=== PATIENT | female | born 1975 | race Caucasian/White ===

== ENCOUNTER 2016-09-13 12:28 | Day surgery (SDC) | payer BC ==
[2016-09-11 13:24] VITALS: BMI 40.3
[2016-09-11 13:28] LABS: BASOPHIL 0.3 % (0-2.0); MCH 27.8 pg (25.7-33.7); MCHC 32.9 g/dl (32.0-36.0); MEAN CELL VOLUME 84.6 fl (80-96); NEUTROPHILS 55.7 % (42.8-82.8); PLATELET COUNT 281 K/MM3 (134-434); RDW 14.7 % (11.6-15.6); WHITE BLOOD COUNT 10.8 K/mm3 (4.0-10.0)
[2016-09-11 13:52] LABS: ALBUMIN 3.6 g/dl (3.4-5.0); ANION GAP 7 (8-16); BILIRUBIN,TOTAL 0.3 mg/dL (0.2-1.0); CALCIUM 8.6 mg/dL (8.5-10.1); CO2 30 mmol/L (21-32); CREATININE 0.5 mg/dL (0.55-1.02); GLUCOSE,RANDOM 98 mg/dL (74-106); SGOT/AST 14 U/L (15-37); SGPT/ALT 17 U/L (12-78); TOT PROT 6.6 g/dl (6.4-8.2)
[2016-09-11 13:53] LABS: ALK PHOS 70 U/L (45-117)
[2016-09-11 14:24] LABS: INR 1.06 (0.82-1.09); PROTHROMBIN TIME (PATIENT) 11.7 SEC (9.98-11.88)
--- NOTE | 2016-09-12 11:41 | EKG ---
Test Reason : Blood Pressure : / mmHG Vent. Rate : 060 BPM Atrial Rate : 060 BPM P-R Int : 146 ms QRS Dur : 100 ms QT Int : 394 ms P-R-T Axes : 007 024 010 degrees QTc Int : 394 ms NORMAL SINUS RHYTHM NORMAL ECG WHEN COMPARED WITH ECG OF 07-NOV-2003 16:34, NO SIGNIFICANT CHANGE WAS FOUND Confirmed by JEREMIE EDMONDS MD ([id number]) on 09/12/2016 11:40:46 AM Referred By: RUEL WOOD Confirmed By:JEREMIE EDMONDS MD
[2016-09-13] MEDS ORDERED: PROPOFOL 20 ML ONE ×2 (14:24→14:44)
[2016-09-13] MEDS ORDERED: MIDAZOLAM HCL 2 MG/2 ML SINGLE DOSE VIAL ONE (14:24)
[2016-09-13] MEDS ORDERED: SUCCINYLCHOLINE CHLORIDE 200 MG/10 ML VIAL ONE (14:24)
--- NOTE | 2016-09-13 14:28 | HP ---
Past Medical History - Primary Care Physician PCP:: Pio Che - Admission Chief Complaint: 40 female admitted for surgical sterilization and excision of vulvar warts. 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: No: Alzheimer's, CVA, Dementia, Migraine, Multiple Sclerosis, Peripheral Neuropathy, Parkinson's, Seizure, Syncope, TIA, Vertigo, Other Cardiovascular: Yes: Other (mitral valve prolapse) Pulmonary: No: Asthma, Bronchitis, Cancer, COPD, O2 Dependent, Pneumonia, Previously Intubated, Pulmonary Embolus, Pulmonary Fibrosis, Sleep Apnea, Other Gastrointestinal: No: Ascites, Cancer, Constipation, Crohn's Disease, Diverticulitis, Diverticulosis, Esophageal Varices, Gastritis, GERD, GI Bleed, Hemorrhoids, Hiatal Hernia, Inflamatory Bowel Disease, Irritable Bowel Disease, Pancreatitis, Peptic Ulcer Disease, Ulcerative Colitis, Other Hepatobiliary: No: Cirrhosis, Cholelithiasis, Cholecystitis, Choledocholithiasis , Hepatitis A, Hepatitis B, Hepatitis C, Other Renal/: No: Renal Failure, Renal Inusuff, BPH, Cancer, Hematuria, Hemodialysis , Neurogenic Bladder, Renal Calculi, UTI, Other Reproductive: No: Ectopic , Endometriosis, Fibroids, PID, Polycystic Ovary Syndrome, Postmenopausal, Other Heme/Onc: No: Anemia, B12 Deficiency, Bleeding Disorder, Cancer, Current Chemotherapy, Current Radiation Therapy, Hemochromatosis, Hypercoaguable State, Myeloproliferative Synd, Sickle Cell Disease, Sickle Cell Trait, Thrombocytopenia, Other Infectious Disease: Yes: Other (HPV) Psych: No: Addictions, Anxiety, Bipolar, Depression, Panic, Psychosis, Schizophrenia, Other Musculoskeletal: No: Bursitis, Chronic low back pain, Hemiparesis, Hemiplegia, Osteoarthritis, Paraplegia, Other Rheumatology: No: Fibromyalgia, Gout, Lupus, Rheumatoid Arthritis, Sarcoidosis, Vasculitis, Other ENT: No: Allergic Rhinitis, Sinusitis, Other Endocrine: No: Demarco's Disease, Mabel's Disease, Diabetes Insipidus, Diabetes Mellitus, Hyperparathyroidism, Hyperthyroidism, Hypothyroidism, Osteopenia, SIADH, Other Dermatology: No: Basal Cell, Cellulitis, Eczema, Melanoma, Psoriasis, Squamous Cell, Other Additional Medical History: Obesity - Past Surgical History Hx Myomectomy: No Hx Transabdominal Cerclage: No Additional Surgical History: LEEP - Smoking History Smoking history: Never smoked Have you smoked in the past 12 months: No - Alcohol/Substance Use Hx Alcohol Use: No History of Substance Use: reports: None - Social History Usual Living Arrangement: Yes: With Child ADL: Independent History of Recent Travel: No Home Medications - Allergies Allergies/Adverse Reactions: Allergies Allergy/AdvReac Type Severity Reaction Status Date / Time No Known Allergies Allergy Verified 09/13/16 13:29 - Home Medications Home Medications: Ambulatory Orders Naproxen [Naprosyn -] 500 mg PO BID 09/11/16 Family Disease History - Family Disease History Family History: Denies Review of Systems - Review of Systems Constitutional: reports: No Symptoms Eyes: reports: No Symptoms HENT: reports: No Symptoms Neck: reports: No Symptoms Cardiovascular: reports: No Symptoms Respiratory: reports: No Symptoms Gastrointestinal: reports: No Symptoms Genitourinary: reports: No Symptoms Breasts: reports: No Symptoms Reported Musculoskeletal: reports: No Symptoms Integumentary: reports: No Symptoms Neurological: reports: No Symptoms Endocrine: reports: No Symptoms Hematology/Lymphatic: reports: No Symptoms Psychiatric: reports: No Symptoms Pain Intensity: 0 Physical Exam-TIRE LAYER Vital Signs: Vital Signs Temperature 97.6 F 09/13/16 13:23 Pulse Rate 50 L 09/13/16 13:23 Respiratory Rate 16 09/13/16 13:23 Blood Pressure 122/70 09/13/16 13:23 O2 Sat by Pulse Oximetry (%) 97 09/13/16 13:23 Constitutional: Yes: Well Nourished, No Distress, Calm Eyes: Yes: WNL, Conjunctiva Clear HENT: Yes: WNL, Atraumatic, Normocephalic Neck: Yes: WNL, Supple, Trachea Midline Cardiovascular: Yes: WNL, Regular Rate and Rhythm Respiratory: Yes: WNL, Regular, CTA Bilaterally Gastrointestinal: Yes: Normal Bowel Sounds, Soft, Abdomen, Obese ...Rectal Exam: Yes: WNL Renal/: Yes: WNL Pelvis: Yes: WNL External Genitalia: Yes: Normal Internal Exam Deferred: No Vaginal Exam: Yes: Normal Cervix: Yes: Normal Uterus: Yes: Normal Adnexa: Normal: Left, Right Breast(s): Yes: WNL Musculoskeletal: Yes: WNL Extremities: Yes: WNL Edema: No Integumentary: Yes: WNL Neurological: Yes: WNL, Alert, Oriented ...Motor Strength: WNL Psychiatric: Yes: WNL, Alert, Oriented Labs: CBC, BMP 09/11/16 12:45 09/11/16 12:45 Assessment/Plan 40 female admitted for surgical sterilization and excision of vulvar warts. The pt prefers laparoscopic bilateral tubal ligation. We had discussed the risks , benefits, alternatives of surgery at length including but not limited to infection, bleeding, scarring, perforation, amenorrhea, infertility, hysterectomy, injury to surrounding/underlying organs or structure, need for additional surgery to repair/treat any complications, etc. The patient verbalized understanding and requested to proceed with surgery. I emphasized that all surgeries have risks and no guarantees can be provided.
[2016-09-13] MEDS ORDERED: ALBUTEROL SO4 6.7 GM HFA INHALER IH ONE (15:13)
[2016-09-13] MEDS ORDERED: ATROPINE SO4 0.4 MG/1 ML VIAL ONE (15:13)
[2016-09-13] MEDS ORDERED: ONDANSETRON 4 MG/2 ML VIAL IVPUSH PRN (15:23)
[2016-09-13] MEDS ORDERED: ALBUTEROL SO4 0.083% IH SOL 2.5 MG/3 ML VIAL.NEB. NEB ONE (15:23)
[2016-09-13] MEDS ORDERED: LACTATED RINGERS SOLUTION 1,000 ML IV SCH (15:30)
[2016-09-13 16:28] VITALS: TEMP 98
[2016-09-13 17:18] VITALS: BP 134/60; PULSE 76
--- NOTE | 2016-10-16 10:28 | OP ---
DATE OF OPERATION: 09/13/2016 PREOPERATIVE DIAGNOSIS: The patient was admitted for laparoscopic bilateral tubal ligation. DESCRIPTION OF PROCEDURE: The patient was brought to the OR. The general anesthesia was attempted; however, the patient experienced bronchospasms, and the anesthesiologist cancelled the procedure. No surgery was performed. The patient was transferred to the recovery room awake and in stable condition. The patient was subsequently discharged to go home. No surgery was performed on September 13, 2016. Loli [id number]
== END 2016-09-13 17:00 | disposition home or self-care (01) ==
LOC: JASU-SURG 12:28
PROVIDERS: ATTEND Obstetrics & Gynecology
PROC: 0U574ZZ Destruction of Bilateral Fallopian Tubes, Percutaneous Endoscopic Approach (ICD-10-PCS; principal; 2016-09-13 14:00)
DX: Z30.2 Encounter for sterilization (principal); Z53.8 Procedure and treatment not carried out for other reasons; J98.01 Acute bronchospasm
CPT/HCPCS: 36415; 71020-TC; 80053; 84703; 85025; 85610; 85730; 86850; 86900; 86901; 93005; 93010; 94760

== ENCOUNTER 2016-10-04 12:39 | Day surgery (SDC) | payer BC ==
[2016-10-02 14:05] VITALS: BMI 39.4
[~2016-10-04 12:39] MED LIST: BUPIVACAINE HCL/PF 0.5% (5MG/ML) 10 ML VIAL IJ ONE; ceFAZolin SODIUM 1 GM VIAL IVPB ONE
[2016-10-04] MEDS ORDERED: BUPIVACAINE HCL/PF 0.5% (5MG/ML) 10 ML VIAL ONE (13:04)
[2016-10-04] MEDS ORDERED: ROCURONIUM BROMIDE 50 MG/5 ML VIAL ONE (13:53)
[2016-10-04] MEDS ORDERED: MIDAZOLAM HCL 2 MG/2 ML SINGLE DOSE VIAL ONE (13:53)
[2016-10-04] MEDS ORDERED: KETOROLAC TROMETHAMINE 30 MG/1 ML VIAL ONE (13:53)
[2016-10-04] MEDS ORDERED: DEXAMETHASONE SOD PHOSPHATE 4 MG/1 ML VIAL ONE (13:53)
[2016-10-04] MEDS ORDERED: PROPOFOL 20 ML ONE (13:53)
[2016-10-04] MEDS ORDERED: ceFAZolin SODIUM 1 GM VIAL IVPB ONE ×2 (14:22→14:42)
[2016-10-04] MEDS ORDERED: HYDROCORTISONE SOD SUCCINATE 2 ML ONE (14:40)
[2016-10-04] MEDS ORDERED: ceFAZolin SODIUM 1 GM VIAL ONE (14:42)
[2016-10-04] MEDS ORDERED: EPINEPHrine/PF 1 MG/1 ML (1:1,000) AMPULE ONE (14:59)
[2016-10-04] MEDS ORDERED: NEOSTIGMINE METHYLSULFATE 0.5 MG/ML - 10 ML MDV ONE (15:10)
[2016-10-04] MEDS ORDERED: GLYCOPYRROLATE 0.2 MG/1 ML VIAL ONE (15:10)
[2016-10-04] MEDS ORDERED: BUPIVACAINE HCL/PF 0.5% (5MG/ML) 10 ML VIAL IJ ONE (15:15)
--- NOTE | 2016-10-04 15:39 | HP ---
History & Physical Update - History History: No Change Currently as noted:: The pt returned for surgical sterilization and excision of genital wart - Physical Physical: No Change - Assessment Assessment: No Change - Plan Plan: No Change Currently as noted:: 40 yo female came for surgical sterilization and excision of genital wart. Assessment Plan - Plan Plan: The pt prefers laparoscopic bilateral tubal ligation. We had discussed the risks , benefits, alternatives of surgery at length including but not limited to infection, bleeding, scarring, perforation, amenorrhea, infertility, hysterectomy, injury to surrounding/underlying organs or structure, need for additional surgery to repair/treat any complications, etc. The patient verbalized understanding and requested to proceed with surgery. I emphasized that all surgeries have risks and no guarantees can be provided.
[2016-10-04] MEDS ORDERED: ACETAMINOPHEN 325 MG TABLET (FP) PO PRN (15:40)
[2016-10-04] MEDS ORDERED: IBUPROFEN 600 MG TABLET (FP) PO PRN (15:40)
[2016-10-04] MEDS ORDERED: ONDANSETRON 4 MG/2 ML VIAL IVPUSH PRN (15:43)
[2016-10-04] MEDS ORDERED: oxyCODONE HCL 5 MG TABLET PO PRN (15:43)
[2016-10-04] MEDS ORDERED: ACETAMINOPHEN 1000 MG/100 ML VIAL (NON FORMULARY) IVPB ONE (15:44)
--- NOTE | 2016-10-04 15:46 | OP ---
Operative Note - Note: Operative Date: 10/04/16 Pre-Operative Diagnosis: Sterilization, genital wart Operation: Laparoscopic BTL, excision of genital wart. Findings: Gynecoid obesity Small AV uterus Normal tubes, ovaries, visualized portions of bowell, stomach, liver, gallbladder. Post-Operative Diagnosis: Same as Pre-op Surgeon: Pio Che Skilled Nursing Professional: Stella Fields Anesthesiologist/CATTLE DIPPER: Samantha Dove Anesthesia: General Specimens Removed: Genital wart Estimated Blood Loss (mls): 0 Drains & Tubes with Location: Morgan Catheter Drains, Volume Out (mls): 100 Blood Volume Replaced (mls): 0 Fluid Volume Replaced (mls): 700 Operative Report Dictated: Yes
[2016-10-04 17:03] VITALS: TEMP 98
[2016-10-04 18:06] VITALS: BP 122/66; PULSE 55
--- NOTE | 2016-10-05 14:36 | OP ---
DATE OF OPERATION: 10/04/2016 PREOPERATIVE DIAGNOSES: Sterilization, genital wart, morbid obesity. POSTOPERATIVE DIAGNOSES: Sterilization, genital wart, morbid obesity. PROCEDURE: Laparoscopic bilateral tubal ligation, excision of the genital wart. COMPLICATIONS: None. PATHOLOGY: Genital wart. SURGEON: Pio Che MD HAND SHOES SEWER: Stella Fields MD NECESSITY FOR HAND SHOES SEWER: The presence and assistance of a surgical services director was necessary and critical to safety of surgery and appropriate care due to significant comorbidities in this patient. ANESTHESIOLOGIST: Samantha Dove MD ANESTHESIA: General endotracheal. ESTIMATED BLOOD LOSS: 0 mL URINE OUTPUT: 100 mL INTRAVENOUS FLUIDS: 700 mL of crystalloid. FINDINGS: Examination under anesthesia revealed a small anteverted uterus with no pelvic or adnexal masses. There was a genital wart present on the left labia, and it was excised as per patient request. During laparoscopy, a small anteverted uterus was noted with no pelvic or adnexal masses. Both fallopian tubes and ovaries were within normal limits. The visualized portions of bowel, liver, stomach, and gallbladder were normal. DESCRIPTION OF PROCEDURE: The patient was met preoperatively. Risks, benefits , and alternatives of surgery were discussed in details, including but not limited to, infections, bleeding, injury to underlying organs or structures, failed sterilization, need for additional surgery to repair or treat any complications. The patient was explained that all surgeries have risks and no guarantees could be provided. The patient verbalized understanding and requested to proceed with surgery. The patient was then brought to the OR with the IV running. She was placed on the surgical table in the supine position. The patient was given anesthesia without complications, although the anesthesiologist did experience difficulties with intubation initially. The anesthesia was then established. The patient was positioned in a dorsal lithotomy position using adjustable Max stirrups. The patient was prepped and draped in the usual sterile fashion. A Morgan catheter was inserted inside the bladder and left to drain to gravity. A HUMI uterine manipulator was introduced inside the uterus without complications. The left vulvar wart was removed with good hemostasis, and a single suture was placed for approximation of the skin. The surgeons then re-gloved and proceeded with the laparoscopy part of the procedure. A 5-mm intraumbilical incision was made with the knife. An Optiview trocar was used to introduce the camera inside the peritoneal cavity. Intraperitoneal placement was confirmed and was atraumatic. Pneumoperitoneum was then induced using CO2 gas with the abdominal pressure set to 18 mmHg. Once the pneumoperitoneum was achieved, a second 5-mm trocar was introduced approximately 3 cm above the pubic symphysis under direct visualization. Atraumatic placement was also confirmed. A bipolar [employer] cautery was then used to grasp the left fallopian tube. The fallopian tube was followed to the fimbriated end. The mid-portion of the fallopian tube was then cauterized for the length of approximately 3.5 to 4 cm. The right fallopian tube was then grasped, and the mid-portion of the right fallopian tube was then cauterized for the length of 3.5-4 cm. Once this was completed, the instruments were removed from the patient. Sponge, lap, and instrument counts were correct. The incisions were closed using a 4-0 Biosyn suture. The HUMI and Morgan catheter were removed. The patient was returned to supine position and transferred to recovery room, awake and in stable condition. Loli [id number] MTDD
--- NOTE | 2016-10-09 09:49 | PATH ---
Surgical Pathology Report Patient Name: JACOB CARR [facility]. Rec. #: [id number] /Age/Gender: 1975 (Age: 40) / F Account: [id number] Location: [facility] SURGICAL Taken: 10/05/2016 Received: 10/05/2016 Reported: 10/09/2016 Physicians: Pio Che M.D. Specimen(s) Received REMOVAL OF GENITAL WART Clinical History Voluntary sterilization, genital wart Final Diagnosis VULVA, BIOPSY: SEBORRHEIC KERATOSIS. Electronically Signed Alfonso Lipscomb M.D. Gross Description Received in formalin labeled "genital wart," is a 0.8 x 0.6 x 0.2 cm lamb myles, polypoid portion of skin. The base is inked blue and the specimen is submitted in toto in one cassette. /10/05/201610/05/2016
== END 2016-10-04 18:20 | disposition home or self-care (01) ==
LOC: JASU-SURG 12:39
PROVIDERS: ATTEND Obstetrics & Gynecology
PROC: 0UBM0ZX Excision of Vulva, Open Approach, Diagnostic (ICD-10-PCS; 2016-10-04)
PROC: 0UL74ZZ Occlusion of Bilateral Fallopian Tubes, Percutaneous Endoscopic Approach (ICD-10-PCS; principal; 2016-10-04 14:00)
DX: Z30.2 Encounter for sterilization (principal); A63.0 Anogenital (venereal) warts; E66.01 Morbid (severe) obesity due to excess calories; Z68.39 Body mass index [BMI] 39.0-39.9, adult
CPT/HCPCS: 84703; 88305-TC; 94760

== ENCOUNTER 2023-02-19 04:18 | Day surgery (SDC) | payer BC ==
[2023-02-14 16:49] VITALS: BMI 39.8
[2023-02-19] MEDS ORDERED: MIDAZOLAM HCL 2 MG/2 ML SINGLE DOSE VIAL ONE ×2 (08:50→09:58)
[2023-02-19] MEDS ORDERED: FENTANYL CITRATE/PF 50 MCG/ML VIAL ONE (08:50)
[2023-02-19] MEDS ORDERED: BUPIVACAINE HCL/PF 0.5% (5MG/ML) 10 ML VIAL ONE (09:00)
[2023-02-19] MEDS ORDERED: PROMETHAZINE HCL 25 MG/1 ML VIAL IVPB PRN (09:05)
[2023-02-19] MEDS ORDERED: ONDANSETRON 4 MG/2 ML VIAL IVPUSH PRN (09:05)
[2023-02-19] MEDS ORDERED: oxyCODONE HCL 5 MG TABLET PO PRN (09:05)
[2023-02-19] MEDS ORDERED: ACETAMINOPHEN 1000 MG/100 ML BAG IVPB ONE ×2 (09:06→11:49)
[2023-02-19] MEDS ORDERED: LACTATED RINGERS SOLUTION 1,000 ML IV SCH (09:15)
[2023-02-19] MEDS ORDERED: SODIUM CHLORIDE 0.9% P/F 10 ML VIAL IJ ONE (09:59)
[2023-02-19] MEDS ORDERED: ceFAZolin SODIUM 1 GM VIAL ONE (09:59)
[2023-02-19] MEDS ORDERED: PROPOFOL 20 ML ONE (10:02)
[2023-02-19] MEDS ORDERED: ceFAZolin SODIUM 1 GM VIAL IVPB ONE (10:05)
[2023-02-19] MEDS ORDERED: ACETAMINOPHEN INJECTION 100 ML IVPB ONE (11:45)
[2023-02-19 15:20] VITALS: RESP 20; TEMP 97.2
[2023-02-19 17:18] VITALS: BP 109/65; PULSE 63
== END 2023-02-19 14:13 | disposition home or self-care (01) ==
LOC: JASU-SURG 04:18
PROVIDERS: ATTEND Obstetrics & Gynecology
PROC: 0UB98ZZ Excision of Uterus, Via Natural or Artificial Opening Endoscopic (ICD-10-PCS; principal; 2023-02-19 09:00)
DX: N92.1 Excessive and frequent menstruation with irregular cycle (principal); N84.0 Polyp of corpus uteri; N92.4 Excessive bleeding in the premenopausal period
CPT/HCPCS: 81025; 88305-TC; 94760

== ENCOUNTER 2023-09-01 17:33 | Emergency (ER) | payer BC ==
[2023-09-01 17:52] VITALS: BP 129/71; PULSE 62; RESP 16; TEMP 98.7; BMI 40.3
[2023-09-01 19:20] LABS: HEMATOCRIT 41.6 % (32.4-45.2); HEMOGLOBIN 13.5 G/dL (10.7-15.3); MCH 28.3 pg (25.7-33.7); MCHC 32.5 g/dl (32.0-36.0); MEAN PLT VOLUME 7.9 fl (7.5-11.1); PLATELET COUNT 290.4 10^3/uL (134-434); RBC 4.78 10^6/uL (3.60-5.2); RDW 14.4 % (11.6-15.6)
[2023-09-01 19:46] LABS: ALK PHOS 53 U/L (45-117); ANION GAP 6 mmol/L (4-13); BILIRUBIN,TOTAL 0.2 mg/dl (0.2-1); CALCIUM 8.9 mg/dl (8.5-10.1); CHLORIDE 105 mmol/L (98-107); CO2 27 mmol/L (21-32); CREATININE 0.6 mg/dl (0.6-1.3); GLUCOSE,RANDOM 109 mg/dl (74-106); MAGNESIUM 1.8 mg/dL (1.8-2.4); POTASSIUM 3.9 mmol/L (3.5-5.1); SGOT/AST 11 U/L (15-37); SGPT/ALT 8 U/L (7-52); SODIUM 138 mmol/L (136-145); TOT PROT 6.5 g/dl (6.4-8.2)
[2023-09-01 19:50] LABS: PLATELET ESTIMATE ADEQUATE
== END 2023-09-01 21:50 | disposition home or self-care (01) ==
LOC: FER 17:33
DX: R51.9 Headache, unspecified (principal); R55 Syncope and collapse; Z20.822 Contact with and (suspected) exposure to COVID-19
CPT/HCPCS: 0241U-QW; 36415; 70450-TC; 80053; 81003; 83735; 84484; 84703; 85027; 87086; 99284-25